=== PATIENT | male | born 1935 | race Caucasian/White ===

== ENCOUNTER 2017-06-29 14:11 | Inpatient (IN) | payer MEDICARE ==
[~2017-06-29] VITALS: Ht 175.3 cm; Wt 66.7 kg
[2017-06-29] MEDS: fentaNYL 100MCG/HR 100 MCG/HR PAT TD SCH (07:45)
[~2017-06-29 14:11] MED LIST: ALPR1TAB PO; DIAZ-104; ESOM40CA39; FENT100D11; HYDR5CAP; LEV500T PO; MEGE40SU PO; METR500T PO; Metronidazole PO; ONDA4TAB5; PRED5PAK8; PREG50CA PO; SUCR1SUS5; TAM04C
[2017-06-29] MEDS ORDERED: SODIUM CHLORIDE 0.9% 1,000 ML IV ONE (14:33)
[2017-06-29] MEDS ORDERED: LEVOFLOXACIN 500MG 100 ML IV ONE (14:45)
[2017-06-29 15:15] LABS: Basophils # (auto) 0.2 uL; Basophils % (auto) 1.1 % (0.0-2.0); Eosinophils # (auto) 0.2 uL; Eosinophils % (auto) 1.4 % (0.0-7.0); Hematocrit 41.5 % (41.0-53.0); Hemoglobin 14.1 g/dL (13.5-17.5); Lymphocytes # (auto) 1.6 uL; Lymphocytes % (auto) 9.3 % (10.0-50.0); Mean Corpuscular Hemoglobin 32.4 pg (28.0-32.0); Mean Corpuscular Volume 95.3 fL (80.0-100.0); Mean Platelet Volume 8.8 fL (6.9-10.8); Monocytes # (auto) 1.1 uL; Monocytes % (auto) 6.4 % (0.0-12.0); Neutrophils # (auto) 13.7 uL; Neutrophils % (auto) 81.8 % (37.0-80.0); Nucleated Red Blood Cells % 0.1 %; Platelet Count (auto) 154 10^3/uL (140-450); Red Cell Distribution Width 14.4 % (11.8-14.3); White Blood Cell 16.8 10^3/uL (4.4-10.8)
[2017-06-29 15:29] LABS: INR 0.98 (0.9-1.15); Partial Thromboplastin Time 25.3 sec (22.64-33.71); Prothrombin Time 10.7 sec (9.37-12.3)
[2017-06-29 15:44] LABS: Albumin 3.3 g/dL (3.4-5.0); BUN/Creatinine Ratio 16.7; Bilirubin, Total 0.9 mg/dL (0.2-1.0); Calcium 8.8 mg/dL (8.5-10.1); Total Protein 6.8 g/dL (6.4-8.2)
[2017-06-29] MEDS ORDERED: LACTULOSE 20Gm/30ML SOLN PO PRN (16:15)
[2017-06-29] MEDS ORDERED: PIPERACILLIN-TAZOB 3.375GM 100 ML IV ONE (16:15)
[2017-06-29] MEDS ORDERED: NITROGLYCERIN 0.4 MG SL TAB SL PRN (16:15)
[2017-06-29] MEDS ORDERED: MORPHINE SULF INJ 2 MG/ML SYRINGE 1ML IV PRN (16:15)
[2017-06-29] MEDS ORDERED: DIAZEPAM 5 MG TAB PO PRN (16:15)
[2017-06-29] MEDS ORDERED: ALBUTEROL SULF 2.5 MG/0.5ML(0.5%) NEB SOLN NEB PRN (16:15)
[2017-06-29] MEDS: PIPERACILLIN-TAZOB 3.375GM 100 ML IV SCH ×2 (16:23→22:23)
[2017-06-29] MEDS ORDERED: ASPirin 81 mg TAB PO ONE (16:30)
[2017-06-29] MEDS ORDERED: CLINDAMYCIN 600MG IV 50 ML IV ONE (16:30)
[2017-06-29] MEDS ORDERED: MEGESTROL ACET 400MG/10ML ORAL SUSP PO ONE (16:30)
[2017-06-29] MEDS ORDERED: AZITHROMYCIN 500MG/D5W 250ML 250 ML IV ONE (16:30)
[2017-06-29] MEDS ORDERED: NITROGLYCERIN 0.2MG/HR TOPICAL PATCH TD ONE (16:30)
[2017-06-29] MEDS ORDERED: PANTOPRAZOLE 40 MG TAB PO ONE (16:30)
[2017-06-29] MEDS: SUCRALFATE 1 GM/10 ML ORAL SUSP PO SCH ×2 (18:00→22:00)
[2017-06-29] MEDS: IPRATROPIUM BROM 0.5 MG/2.5ML INH SOL NEB SCH (18:38)
[2017-06-29] MEDS: ALBUTEROL SULF 2.5 MG/0.5ML(0.5%) NEB SOLN NEB SCH (18:38)
[2017-06-29] MEDS: ATORVASTATIN 20 MG TAB PO SCH (22:00)
[2017-06-29] MEDS: TAMSULOSIN HYDROCHLORIDE 0.4 MG CAP PO SCH (22:00)
[2017-06-29] MEDS: PREGABALIN 25 MG CAP PO SCH (22:00)
[2017-06-29] MEDS: CLINDAMYCIN 600MG IV 50 ML IV SCH (22:00)
[2017-06-29] MEDS ORDERED: PATIENTS OWN MEDICATION (Pregabalin (Lyrica) 1 CAP) PO SCH (22:00)
[2017-06-29] MEDS ORDERED: ALPRAZolam 0.5 MG TAB PO ONE (22:30)
[2017-06-29 22:40] LABS: Urine RBC None Seen /hpf (0 - 3)
[2017-06-29 22:58] LABS: Urine Bilirubin Negative (Negative); Urine Blood Negative /uL (Negative); Urine Color Yellow (Yellow); Urine Glucose Normal (Normal); Urine Ketone Negative (Negative); Urine Nitrite Negative (Negative); Urine Urobilinogen Normal (Negative)
[2017-06-30] MEDS: IPRATROPIUM BROM 0.5 MG/2.5ML INH SOL NEB SCH ×4 (00:06→17:58)
[2017-06-30] MEDS: ALBUTEROL SULF 2.5 MG/0.5ML(0.5%) NEB SOLN NEB SCH ×4 (00:06→17:58)
[2017-06-30 01:35] VITALS: BP 160/73
[2017-06-30] MEDS: PIPERACILLIN-TAZOB 3.375GM 100 ML IV SCH ×4 (04:23→23:30)
[2017-06-30 04:24] LABS: Basophils # (auto) 0.1 uL; Basophils % (auto) 0.5 % (0.0-2.0); Eosinophils # (auto) 0.3 uL; Eosinophils % (auto) 3.2 % (0.0-7.0); Hematocrit 38.7 % (41.0-53.0); Lymphocytes % (auto) 18.3 % (10.0-50.0); Mean Corpuscular Hemoglobin 31.9 pg (28.0-32.0); Mean Corpuscular Hgb Conc. 33.6 g/dL (32.0-36.0); Mean Corpuscular Volume 95.1 fL (80.0-100.0); Mean Platelet Volume 8.5 fL (6.9-10.8); Neutrophils # (auto) 7.5 uL; Platelet Count (auto) 133 10^3/uL (140-450); Red Cell Distribution Width 14.1 % (11.8-14.3); White Blood Cell 10.8 10^3/uL (4.4-10.8)
[2017-06-30] MEDS: MORPHINE SULF INJ 2 MG/ML SYRINGE 1ML IV PRN ×3 (04:57→22:40)
[2017-06-30] MEDS: ONDANSETRON HCL 4 MG/2 ML VIAL IV PRN ×2 (04:57→18:14)
[2017-06-30] MEDS: SUCRALFATE 1 GM/10 ML ORAL SUSP PO SCH ×4 (06:24→22:00)
[2017-06-30] MEDS: PREGABALIN 25 MG CAP PO SCH ×3 (06:26→22:00)
[2017-06-30] MEDS: CLINDAMYCIN 600MG IV 50 ML IV SCH ×3 (06:26→22:00)
[2017-06-30] MEDS: AZITHROMYCIN 500MG/D5W 250ML 250 ML IV SCH (10:16)
[2017-06-30] MEDS: MEGESTROL ACET 400MG/10ML ORAL SUSP PO SCH (10:17)
[2017-06-30] MEDS: NITROGLYCERIN 0.2MG/HR TOPICAL PATCH TD SCH (10:17)
[2017-06-30] MEDS: PANTOPRAZOLE 40 MG TAB PO SCH (10:17)
[2017-06-30] MEDS: ASPirin 81 mg TAB PO SCH (10:17)
[2017-06-30] MEDS: ALPRAZolam 0.5 MG TAB PO SCH ×2 (10:17→22:00)
[2017-06-30] MEDS: BOOST PLUS 8 ounce PO SCH (18:10)
[2017-06-30] MEDS ORDERED: HYDROcodone-ACET 10/325MG TAB PO ONE (20:45)
[2017-06-30] MEDS: TAMSULOSIN HYDROCHLORIDE 0.4 MG CAP PO SCH (22:00)
[2017-06-30] MEDS: ATORVASTATIN 20 MG TAB PO SCH (22:00)
[2017-07-01] MEDS: ALBUTEROL SULF 2.5 MG/0.5ML(0.5%) NEB SOLN NEB SCH ×4 (00:11→19:28)
[2017-07-01] MEDS: IPRATROPIUM BROM 0.5 MG/2.5ML INH SOL NEB SCH ×4 (00:11→19:28)
[2017-07-01] MEDS: PIPERACILLIN-TAZOB 3.375GM 100 ML IV SCH ×4 (04:23→18:24)
[2017-07-01 04:38] LABS: Basophils # (auto) 0.1 uL; Basophils % (auto) 0.8 % (0.0-2.0); Eosinophils # (auto) 0.4 uL; Eosinophils % (auto) 5.2 % (0.0-7.0); Hematocrit 37.1 % (41.0-53.0); Hemoglobin 12.7 g/dL (13.5-17.5); Lymphocytes # (auto) 1.5 uL; Lymphocytes % (auto) 19.2 % (10.0-50.0); Mean Corpuscular Hemoglobin 32.1 pg (28.0-32.0); Mean Corpuscular Hgb Conc. 34.3 g/dL (32.0-36.0); Mean Corpuscular Volume 93.8 fL (80.0-100.0); Mean Platelet Volume 8.6 fL (6.9-10.8); Monocytes % (auto) 13.3 % (0.0-12.0); Neutrophils # (auto) 4.7 uL; Neutrophils % (auto) 61.5 % (37.0-80.0); Nucleated Red Blood Cells % 0.1 %; Platelet Count (auto) 145 10^3/uL (140-450); Red Cell Distribution Width 13.8 % (11.8-14.3); White Blood Cell 7.7 10^3/uL (4.4-10.8)
[2017-07-01 04:46] LABS: Potassium 3.8 mmol/L (3.5-5.1)
[2017-07-01] MEDS: MORPHINE SULF INJ 2 MG/ML SYRINGE 1ML IV PRN ×5 (04:49→22:03)
[2017-07-01 04:55] LABS: Albumin 2.7 g/dL (3.4-5.0); BUN/Creatinine Ratio 14.7; Calcium 8.2 mg/dL (8.5-10.1)
[2017-07-01 05:00] LABS: Bilirubin, Total 0.3 mg/dL (0.2-1.0); Total Protein 5.6 g/dL (6.4-8.2)
[2017-07-01] MEDS: PREGABALIN 25 MG CAP PO SCH ×3 (06:20→22:01)
[2017-07-01] MEDS: SUCRALFATE 1 GM/10 ML ORAL SUSP PO SCH ×4 (06:20→22:01)
[2017-07-01] MEDS: CLINDAMYCIN 600MG IV 50 ML IV SCH (06:30)
[2017-07-01] MEDS: ONDANSETRON HCL 4 MG/2 ML VIAL IV PRN (06:41)
[2017-07-01] MEDS: BOOST PLUS 8 ounce PO SCH ×3 (08:00→18:00)
[2017-07-01] MEDS: NITROGLYCERIN 0.2MG/HR TOPICAL PATCH TD SCH (10:00)
[2017-07-01 10:50] VITALS: BP 99/67
[2017-07-01] MEDS: ASPirin 81 mg TAB PO SCH (11:14)
[2017-07-01] MEDS: ALPRAZolam 0.5 MG TAB PO SCH ×2 (11:15→22:03)
[2017-07-01] MEDS: PANTOPRAZOLE 40 MG TAB PO SCH (11:15)
[2017-07-01] MEDS: MEGESTROL ACET 400MG/10ML ORAL SUSP PO SCH (11:17)
[2017-07-01] MEDS ORDERED: SUC1LQ PO (11:35)
[2017-07-01] MEDS ORDERED: FENT100D2 TD (11:35)
[2017-07-01] MEDS ORDERED: ESOM20CA PO (11:35)
[2017-07-01] MEDS ORDERED: ONDA4TAB5 PO (11:35)
[2017-07-01] MEDS ORDERED: TAM04C PO (11:35)
[2017-07-01] MEDS ORDERED: PRE5T PO (11:35)
[2017-07-01] MEDS ORDERED: HYDR-4663 PO (11:35)
[2017-07-01] MEDS ORDERED: PREG50CA PO (11:35)
[2017-07-01] MEDS: AZITHROMYCIN 500MG/D5W 250ML 250 ML IV SCH (11:36)
[2017-07-01 13:00] VITALS: BP 138/76
[2017-07-01 17:00] VITALS: BP 108/71
[2017-07-01 20:00] VITALS: BP 137/79
[2017-07-01 21:30] VITALS: BP 127/85
[2017-07-01] MEDS: ATORVASTATIN 20 MG TAB PO SCH (22:01)
[2017-07-01] MEDS: TAMSULOSIN HYDROCHLORIDE 0.4 MG CAP PO SCH (22:03)
[2017-07-02] VITALS (8 sets, daily range): BP systolic 111–146; BP diastolic 70–85
[2017-07-02] MEDS: IPRATROPIUM BROM 0.5 MG/2.5ML INH SOL NEB SCH ×4 (00:15→19:07)
[2017-07-02] MEDS: ALBUTEROL SULF 2.5 MG/0.5ML(0.5%) NEB SOLN NEB SCH ×4 (00:15→19:07)
[2017-07-02] MEDS: PIPERACILLIN-TAZOB 3.375GM 100 ML IV SCH ×5 (00:58→23:54)
[2017-07-02] MEDS: MORPHINE SULF INJ 2 MG/ML SYRINGE 1ML IV PRN ×3 (02:21→23:54)
[2017-07-02] MEDS: PREGABALIN 25 MG CAP PO SCH ×3 (06:03→21:34)
[2017-07-02] MEDS: SUCRALFATE 1 GM/10 ML ORAL SUSP PO SCH ×4 (06:03→21:34)
[2017-07-02] MEDS: BOOST PLUS 8 ounce PO SCH ×3 (08:00→18:11)
[2017-07-02] MEDS: fentaNYL 100MCG/HR 100 MCG/HR PAT TD SCH (08:00)
[2017-07-02] MEDS: HYDROmorphone HCL 2 MG/ML VL IV PRN ×3 (09:29→17:56)
[2017-07-02] MEDS: ALPRAZolam 0.5 MG TAB PO SCH ×2 (09:32→21:34)
[2017-07-02] MEDS: MEGESTROL ACET 400MG/10ML ORAL SUSP PO SCH (09:32)
[2017-07-02] MEDS: ASPirin 81 mg TAB PO SCH (09:32)
[2017-07-02] MEDS: NITROGLYCERIN 0.2MG/HR TOPICAL PATCH TD SCH (09:33)
[2017-07-02] MEDS: AZITHROMYCIN 500MG/D5W 250ML 250 ML IV SCH (09:34)
[2017-07-02] MEDS: PANTOPRAZOLE 40 MG TAB PO SCH (09:36)
[2017-07-02] MEDS: TAMSULOSIN HYDROCHLORIDE 0.4 MG CAP PO SCH (21:34)
[2017-07-02] MEDS: ATORVASTATIN 20 MG TAB PO SCH (21:34)
[2017-07-03] MEDS: HYDROmorphone HCL 2 MG/ML VL IV PRN ×4 (04:18→20:11)
[2017-07-03 05:00] VITALS: BP 129/60
[2017-07-03] MEDS: PIPERACILLIN-TAZOB 3.375GM 100 ML IV SCH ×3 (06:07→18:48)
[2017-07-03] MEDS: PREGABALIN 25 MG CAP PO SCH ×4 (06:08→23:58)
[2017-07-03] MEDS: SUCRALFATE 1 GM/10 ML ORAL SUSP PO SCH ×5 (06:08→23:57)
[2017-07-03] MEDS: IPRATROPIUM BROM 0.5 MG/2.5ML INH SOL NEB SCH ×4 (06:47→18:19)
[2017-07-03] MEDS: ALBUTEROL SULF 2.5 MG/0.5ML(0.5%) NEB SOLN NEB SCH ×4 (06:48→18:19)
[2017-07-03 08:00] VITALS: BP 118/74
[2017-07-03] MEDS: MEGESTROL ACET 400MG/10ML ORAL SUSP PO SCH (09:44)
[2017-07-03] MEDS: PANTOPRAZOLE 40 MG TAB PO SCH (09:45)
[2017-07-03] MEDS: ASPirin 81 mg TAB PO SCH (09:45)
[2017-07-03] MEDS: ALPRAZolam 0.5 MG TAB PO SCH ×3 (09:45→23:58)
[2017-07-03] MEDS: BOOST PLUS 8 ounce PO SCH ×3 (09:46→18:48)
[2017-07-03] MEDS: NITROGLYCERIN 0.2MG/HR TOPICAL PATCH TD SCH (09:46)
[2017-07-03] MEDS: AZITHROMYCIN 500MG/D5W 250ML 250 ML IV SCH (09:46)
[2017-07-03 10:24] VITALS: BP 118/74
[2017-07-03 13:00] VITALS: BP 101/85
[2017-07-03 17:29] VITALS: BP 100/67
[2017-07-03 20:00] VITALS: BP 101/67
[2017-07-03] MEDS: ATORVASTATIN 20 MG TAB PO SCH ×2 (22:00→23:58)
[2017-07-03] MEDS: TAMSULOSIN HYDROCHLORIDE 0.4 MG CAP PO SCH ×2 (22:00→23:58)
[2017-07-04] MEDS: PIPERACILLIN-TAZOB 3.375GM 100 ML IV SCH ×3 (00:28→12:35)
[2017-07-04] MEDS: HYDROmorphone HCL 2 MG/ML VL IV PRN ×5 (00:29→20:21)
[2017-07-04] MEDS: ALBUTEROL SULF 2.5 MG/0.5ML(0.5%) NEB SOLN NEB SCH ×4 (00:34→19:35)
[2017-07-04] MEDS: IPRATROPIUM BROM 0.5 MG/2.5ML INH SOL NEB SCH ×4 (00:34→19:35)
[2017-07-04 03:00] VITALS: BP 101/67
[2017-07-04] MEDS: SUCRALFATE 1 GM/10 ML ORAL SUSP PO SCH ×4 (06:05→22:13)
[2017-07-04] MEDS: PREGABALIN 25 MG CAP PO SCH ×3 (06:05→22:13)
[2017-07-04 07:55] VITALS: BP 100/65
[2017-07-04 08:00] VITALS: BP 100/65
[2017-07-04] MEDS: MEGESTROL ACET 400MG/10ML ORAL SUSP PO SCH (10:11)
[2017-07-04] MEDS: NITROGLYCERIN 0.2MG/HR TOPICAL PATCH TD SCH (10:11)
[2017-07-04] MEDS: AZITHROMYCIN 500MG/D5W 250ML 250 ML IV SCH (10:12)
[2017-07-04] MEDS: ALPRAZolam 0.5 MG TAB PO SCH ×2 (10:13→22:13)
[2017-07-04] MEDS: PANTOPRAZOLE 40 MG TAB PO SCH (10:14)
[2017-07-04] MEDS: ASPirin 81 mg TAB PO SCH (10:14)
[2017-07-04] MEDS: BOOST PLUS 8 ounce PO SCH ×3 (11:57→18:06)
[2017-07-04] MEDS: fentaNYL 100MCG/HR 100 MCG/HR PAT TD SCH (12:00)
[2017-07-04 13:27] VITALS: BP 122/84
[2017-07-04 14:40] LABS: Allen Test Yes; Blood 02Sat 93.7 % (96-100); Blood COHb 0.4 % (0.5-1.5); Blood MetHb 0.1 % (0.0-1.5); HCO3 21.8 mmol/L (22-26.0); HHb 6.3 % (0.0-5.0); MODE NASAL CANNULA; O2Hb 93.2 % (94.0-97.0); PCO2 31.3 mmHg (35.0-45.0); PCO2(T) 31.3 mmHg (35.0-45.0); PO2 71.3 mmHg (80.0-100.0); PO2(T) 71.3 mmHg (80.0-100.0); Room 0288T; Sample Type Arterial; pH 7.461 (7.350-7.450)
[2017-07-04 15:26] LABS: Basophils # (auto) 0.1 uL; Eosinophils # (auto) 0.7 uL; Eosinophils % (auto) 6.4 % (0.0-7.0); Hematocrit 39.9 % (41.0-53.0); Hemoglobin 13.6 g/dL (13.5-17.5); Lymphocytes # (auto) 1.8 uL; Lymphocytes % (auto) 17.6 % (10.0-50.0); Mean Corpuscular Hemoglobin 31.9 pg (28.0-32.0); Mean Corpuscular Volume 93.9 fL (80.0-100.0); Mean Platelet Volume 9.2 fL (6.9-10.8); Monocytes # (auto) 1.2 uL; Monocytes % (auto) 11.8 % (0.0-12.0); Neutrophils # (auto) 6.5 uL; Neutrophils % (auto) 63.2 % (37.0-80.0); Nucleated Red Blood Cells % 0.1 %; Platelet Count (auto) 172 10^3/uL (140-450); Red Cell Distribution Width 14.1 % (11.8-14.3); White Blood Cell 10.3 10^3/uL (4.4-10.8)
[2017-07-04 15:32] LABS: Albumin 2.8 g/dL (3.4-5.0); BUN/Creatinine Ratio 15.6; Calcium 8.6 mg/dL (8.5-10.1); Potassium 3.5 mmol/L (3.5-5.1)
[2017-07-04 15:33] LABS: Bilirubin, Total 0.4 mg/dL (0.2-1.0); Total Protein 6.1 g/dL (6.4-8.2)
[2017-07-04 16:51] VITALS: BP 115/62
[2017-07-04] MEDS: DOXYCYCLINE HYC IV SCH (18:06)
[2017-07-04] MEDS: D5W IV SCH (18:06)
[2017-07-04] MEDS: Boost Breeze 8 Ounces PO SCH (18:06)
[2017-07-04 21:54] VITALS: BP 116/70
[2017-07-04] MEDS: TAMSULOSIN HYDROCHLORIDE 0.4 MG CAP PO SCH (22:13)
[2017-07-04] MEDS: ATORVASTATIN 20 MG TAB PO SCH (22:13)
[2017-07-05] MEDS: ALBUTEROL SULF 2.5 MG/0.5ML(0.5%) NEB SOLN NEB SCH ×4 (00:33→18:00)
[2017-07-05] MEDS: IPRATROPIUM BROM 0.5 MG/2.5ML INH SOL NEB SCH ×4 (00:33→18:00)
[2017-07-05] MEDS: HYDROmorphone HCL 2 MG/ML VL IV PRN ×4 (01:36→21:18)
[2017-07-05 04:57] VITALS: BP 119/85
[2017-07-05] MEDS: SUCRALFATE 1 GM/10 ML ORAL SUSP PO SCH ×4 (05:33→22:48)
[2017-07-05] MEDS: D5W IV SCH ×2 (05:33→17:10)
[2017-07-05] MEDS: DOXYCYCLINE HYC IV SCH ×2 (05:33→17:10)
[2017-07-05] MEDS: PREGABALIN 25 MG CAP PO SCH ×3 (05:33→22:47)
[2017-07-05 07:58] VITALS: BP 116/79
[2017-07-05] MEDS: NITROGLYCERIN 0.2MG/HR TOPICAL PATCH TD SCH (09:58)
[2017-07-05] MEDS: MEGESTROL ACET 400MG/10ML ORAL SUSP PO SCH (09:58)
[2017-07-05] MEDS: PANTOPRAZOLE 40 MG TAB PO SCH (09:59)
[2017-07-05] MEDS: ALPRAZolam 0.5 MG TAB PO SCH ×2 (09:59→22:47)
[2017-07-05] MEDS: ASPirin 81 mg TAB PO SCH (09:59)
[2017-07-05] MEDS: Boost Breeze 8 Ounces PO SCH ×3 (10:00→17:10)
[2017-07-05] MEDS: BOOST PLUS 8 ounce PO SCH ×3 (10:00→17:10)
[2017-07-05 10:55] LABS: Basophils # (auto) 0.1 uL; Basophils % (auto) 0.8 % (0.0-2.0); Eosinophils # (auto) 0.7 uL; Eosinophils % (auto) 5.3 % (0.0-7.0); Hematocrit 40.5 % (41.0-53.0); Hemoglobin 13.8 g/dL (13.5-17.5); Lymphocytes # (auto) 2.1 uL; Lymphocytes % (auto) 16.4 % (10.0-50.0); Mean Corpuscular Hemoglobin 32.1 pg (28.0-32.0); Mean Corpuscular Hgb Conc. 34.1 g/dL (32.0-36.0); Mean Platelet Volume 9.1 fL (6.9-10.8); Monocytes # (auto) 1.2 uL; Monocytes % (auto) 9.7 % (0.0-12.0); Neutrophils # (auto) 8.8 uL; Neutrophils % (auto) 67.8 % (37.0-80.0); Nucleated Red Blood Cells % 0.1 %; Platelet Count (auto) 176 10^3/uL (140-450); Red Cell Distribution Width 13.6 % (11.8-14.3); White Blood Cell 12.9 10^3/uL (4.4-10.8)
[2017-07-05 11:37] LABS: Calcium 8.8 mg/dL (8.5-10.1); Potassium 3.7 mmol/L (3.5-5.1)
[2017-07-05 13:11] VITALS: BP 121/64
[2017-07-05] MEDS: fentaNYL 100MCG/HR 100 MCG/HR PAT TD SCH (16:15)
[2017-07-05 16:49] VITALS: BP 99/66
[2017-07-05 22:22] VITALS: BP 122/70
[2017-07-05] MEDS: ATORVASTATIN 20 MG TAB PO SCH (22:47)
[2017-07-05] MEDS: TAMSULOSIN HYDROCHLORIDE 0.4 MG CAP PO SCH (22:48)
[2017-07-06] MEDS: ALBUTEROL SULF 2.5 MG/0.5ML(0.5%) NEB SOLN NEB SCH ×4 (00:35→19:48)
[2017-07-06] MEDS: IPRATROPIUM BROM 0.5 MG/2.5ML INH SOL NEB SCH ×4 (00:35→19:48)
[2017-07-06] MEDS: HYDROmorphone HCL 2 MG/ML VL IV PRN ×6 (01:26→22:20)
[2017-07-06 05:21] VITALS: BP 124/76
[2017-07-06] MEDS: PREGABALIN 25 MG CAP PO SCH ×3 (05:28→22:20)
[2017-07-06] MEDS: D5W IV SCH ×2 (05:29→17:47)
[2017-07-06] MEDS: DOXYCYCLINE HYC IV SCH ×2 (05:29→17:47)
[2017-07-06] MEDS: SUCRALFATE 1 GM/10 ML ORAL SUSP PO SCH ×4 (05:29→22:20)
[2017-07-06] MEDS: Boost Breeze 8 Ounces PO SCH ×3 (08:16→17:47)
[2017-07-06] MEDS: BOOST PLUS 8 ounce PO SCH ×3 (08:17→17:47)
[2017-07-06 09:26] VITALS: BP 124/76
[2017-07-06 09:42] VITALS: BP 96/73
[2017-07-06] MEDS: NITROGLYCERIN 0.2MG/HR TOPICAL PATCH TD SCH (10:00)
[2017-07-06] MEDS: MEGESTROL ACET 400MG/10ML ORAL SUSP PO SCH (10:35)
[2017-07-06] MEDS: PANTOPRAZOLE 40 MG TAB PO SCH (10:36)
[2017-07-06] MEDS: ALPRAZolam 0.5 MG TAB PO SCH ×2 (10:36→22:20)
[2017-07-06] MEDS: ASPirin 81 mg TAB PO SCH (10:36)
[2017-07-06 11:00] VITALS: BP 100/70
[2017-07-06] MEDS: DIAZEPAM 5 MG TAB PO PRN (14:24)
[2017-07-06 17:02] VITALS: BP 98/72
[2017-07-06 22:00] VITALS: BP 126/84
[2017-07-06] MEDS: TAMSULOSIN HYDROCHLORIDE 0.4 MG CAP PO SCH (22:20)
[2017-07-06] MEDS: ATORVASTATIN 20 MG TAB PO SCH (22:41)
[2017-07-07] MEDS: ALBUTEROL SULF 2.5 MG/0.5ML(0.5%) NEB SOLN NEB SCH ×4 (00:09→19:32)
[2017-07-07] MEDS: IPRATROPIUM BROM 0.5 MG/2.5ML INH SOL NEB SCH ×4 (00:09→19:32)
[2017-07-07] MEDS: HYDROmorphone HCL 2 MG/ML VL IV PRN ×5 (02:07→21:08)
[2017-07-07] MEDS: PREGABALIN 25 MG CAP PO SCH ×3 (06:29→22:12)
[2017-07-07] MEDS: SUCRALFATE 1 GM/10 ML ORAL SUSP PO SCH ×4 (06:29→22:11)
[2017-07-07] MEDS: D5W IV SCH ×2 (06:30→17:26)
[2017-07-07] MEDS: DOXYCYCLINE HYC IV SCH ×2 (06:30→17:26)
[2017-07-07] MEDS: Boost Breeze 8 Ounces PO SCH ×3 (08:00→18:18)
[2017-07-07] MEDS: BOOST PLUS 8 ounce PO SCH ×3 (08:00→18:00)
[2017-07-07 08:58] VITALS: BP 122/77
[2017-07-07] MEDS: NITROGLYCERIN 0.2MG/HR TOPICAL PATCH TD SCH (10:00)
[2017-07-07] MEDS: PANTOPRAZOLE 40 MG TAB PO SCH (10:00)
[2017-07-07] MEDS: ALPRAZolam 0.5 MG TAB PO SCH ×2 (10:00→22:13)
[2017-07-07] MEDS: MEGESTROL ACET 400MG/10ML ORAL SUSP PO SCH ×2 (10:00→13:01)
[2017-07-07] MEDS: ASPirin 81 mg TAB PO SCH (10:00)
[2017-07-07] MEDS: fentaNYL 100MCG/HR 100 MCG/HR PAT TD SCH (11:20)
[2017-07-07 12:42] VITALS: BP 115/76
[2017-07-07] MEDS ORDERED: TESTOSTERONE CYPIONATE 200 MG/ML 1ML VIAL IM ONE (13:00)
[2017-07-07 13:52] LABS: Basophils # (auto) 0.1 uL; Basophils % (auto) 1.1 % (0.0-2.0); Eosinophils # (auto) 0.5 uL; Eosinophils % (auto) 4.9 % (0.0-7.0); Hematocrit 39.2 % (41.0-53.0); Hemoglobin 13.1 g/dL (13.5-17.5); Lymphocytes # (auto) 2.2 uL; Lymphocytes % (auto) 23.6 % (10.0-50.0); Mean Corpuscular Hemoglobin 31.6 pg (28.0-32.0); Mean Corpuscular Hgb Conc. 33.4 g/dL (32.0-36.0); Mean Corpuscular Volume 94.6 fL (80.0-100.0); Mean Platelet Volume 9.4 fL (6.9-10.8); Neutrophils # (auto) 5.7 uL; Neutrophils % (auto) 59.4 % (37.0-80.0); Platelet Count (auto) 162 10^3/uL (140-450); Red Cell Distribution Width 13.7 % (11.8-14.3); White Blood Cell 9.5 10^3/uL (4.4-10.8)
[2017-07-07 14:18] LABS: Albumin 2.8 g/dL (3.4-5.0); BUN/Creatinine Ratio 14.2; Calcium 8.6 mg/dL (8.5-10.1); Potassium 3.7 mmol/L (3.5-5.1)
[2017-07-07 14:34] LABS: Bilirubin, Total 0.5 mg/dL (0.2-1.0); Total Protein 6.1 g/dL (6.4-8.2)
[2017-07-07 14:40] LABS: Temperature: 21.9 C (20.0-25.0)
[2017-07-07 16:18] VITALS: BP 130/80
[2017-07-07] MEDS: DIAZEPAM 5 MG TAB PO PRN (17:25)
[2017-07-07 22:00] VITALS: BP 127/75
[2017-07-07] MEDS: TAMSULOSIN HYDROCHLORIDE 0.4 MG CAP PO SCH (22:11)
[2017-07-07] MEDS: ATORVASTATIN 20 MG TAB PO SCH (22:12)
[2017-07-08] MEDS: ALBUTEROL SULF 2.5 MG/0.5ML(0.5%) NEB SOLN NEB SCH ×4 (01:07→19:46)
[2017-07-08] MEDS: IPRATROPIUM BROM 0.5 MG/2.5ML INH SOL NEB SCH ×4 (01:08→19:46)
[2017-07-08] MEDS: HYDROmorphone HCL 2 MG/ML VL IV PRN ×5 (01:13→20:05)
[2017-07-08 05:00] VITALS: BP 114/74
[2017-07-08] MEDS: D5W IV SCH ×2 (05:27→17:00)
[2017-07-08] MEDS: DOXYCYCLINE HYC IV SCH ×2 (05:27→17:00)
[2017-07-08] MEDS: PREGABALIN 25 MG CAP PO SCH ×3 (05:28→22:05)
[2017-07-08] MEDS: SUCRALFATE 1 GM/10 ML ORAL SUSP PO SCH ×4 (05:28→22:04)
[2017-07-08] MEDS: DIAZEPAM 5 MG TAB PO PRN (06:55)
[2017-07-08] MEDS: BOOST PLUS 8 ounce PO SCH ×3 (08:00→18:00)
[2017-07-08] MEDS: Boost Breeze 8 Ounces PO SCH ×3 (08:00→18:00)
[2017-07-08 09:00] VITALS: BP 121/67
[2017-07-08] MEDS: NITROGLYCERIN 0.2MG/HR TOPICAL PATCH TD SCH (10:00)
[2017-07-08] MEDS: ALPRAZolam 0.5 MG TAB PO SCH ×2 (10:00→22:05)
[2017-07-08] MEDS: ASPirin 81 mg TAB PO SCH (10:00)
[2017-07-08] MEDS: PANTOPRAZOLE 40 MG TAB PO SCH (10:00)
[2017-07-08] MEDS: MEGESTROL ACET 400MG/10ML ORAL SUSP PO SCH ×2 (10:00)
[2017-07-08 13:00] VITALS: BP 126/71
[2017-07-08 17:00] VITALS: BP 102/76
[2017-07-08] MEDS: fentaNYL 100MCG/HR 100 MCG/HR PAT TD SCH (19:26)
[2017-07-08 22:00] VITALS: BP 100/73
[2017-07-08] MEDS: TAMSULOSIN HYDROCHLORIDE 0.4 MG CAP PO SCH (22:05)
[2017-07-08] MEDS: ATORVASTATIN 20 MG TAB PO SCH (22:05)
[2017-07-09] VITALS (7 sets, daily range): BP systolic 93–134; BP diastolic 58–73
[2017-07-09] MEDS: HYDROmorphone HCL 2 MG/ML VL IV PRN ×4 (00:39→14:04)
[2017-07-09] MEDS: IPRATROPIUM BROM 0.5 MG/2.5ML INH SOL NEB SCH ×3 (00:49→11:00)
[2017-07-09] MEDS: ALBUTEROL SULF 2.5 MG/0.5ML(0.5%) NEB SOLN NEB SCH ×3 (00:49→11:00)
[2017-07-09] MEDS: DOXYCYCLINE HYC IV SCH ×2 (05:18→17:06)
[2017-07-09] MEDS: D5W IV SCH ×2 (05:18→17:06)
[2017-07-09] MEDS: PREGABALIN 25 MG CAP PO SCH ×2 (06:08→14:15)
[2017-07-09] MEDS: SUCRALFATE 1 GM/10 ML ORAL SUSP PO SCH ×3 (06:08→17:26)
[2017-07-09] MEDS: Boost Breeze 8 Ounces PO SCH ×3 (08:00→18:04)
[2017-07-09] MEDS: BOOST PLUS 8 ounce PO SCH ×3 (08:00→18:04)
[2017-07-09] MEDS: ALPRAZolam 0.5 MG TAB PO SCH (09:34)
[2017-07-09] MEDS: MEGESTROL ACET 400MG/10ML ORAL SUSP PO SCH ×2 (09:34)
[2017-07-09] MEDS: ASPirin 81 mg TAB PO SCH (09:34)
[2017-07-09] MEDS: PANTOPRAZOLE 40 MG TAB PO SCH (09:34)
[2017-07-09] MEDS: NITROGLYCERIN 0.2MG/HR TOPICAL PATCH TD SCH (09:35)
[2017-07-09] MEDS: MORPHINE SULF INJ 2 MG/ML SYRINGE 1ML IV PRN (17:06)
== END 2017-07-09 18:57 | disposition home health service (06) | DRG 871 ==
LOC: ER 14:11 → EDBD 14:11 → OVERFLOW 14:12 → TELE-E-ADS 07-01 08:02 → TELE-WESTW 07-01 10:27
PROVIDERS: ADMIT Internal Medicine; ATTEND Internal Medicine Cardiovascular Disease
DX: A41.9 Sepsis, unspecified organism (principal); J18.9 Pneumonia, unspecified organism; I21.4 Non-ST elevation (NSTEMI) myocardial infarction; G93.41 Metabolic encephalopathy; E44.0 Moderate protein-calorie malnutrition; I48.92 Unspecified atrial flutter; J44.0 Chronic obstructive pulmonary disease with (acute) lower respiratory infection; D68.69 Other thrombophilia; I48.0 Paroxysmal atrial fibrillation; I25.10 Atherosclerotic heart disease of native coronary artery without angina pectoris; K21.9 Gastro-esophageal reflux disease without esophagitis; I10 Essential (primary) hypertension; I25.5 Ischemic cardiomyopathy; K27.9 Peptic ulcer, site unspecified, unspecified as acute or chronic, without hemorrhage or perforation; F32.9 Major depressive disorder, single episode, unspecified; F41.9 Anxiety disorder, unspecified; M19.90 Unspecified osteoarthritis, unspecified site; B95.62 Methicillin resistant Staphylococcus aureus infection as the cause of diseases classified elsewhere; K59.00 Constipation, unspecified; Z90.5 Acquired absence of kidney; Z71.3 Dietary counseling and surveillance; Z68.21 Body mass index [BMI] 21.0-21.9, adult; Z95.1 Presence of aortocoronary bypass graft; Z90.49 Acquired absence of other specified parts of digestive tract; I25.2 Old myocardial infarction; Z88.2 Allergy status to sulfonamides; Z88.1 Allergy status to other antibiotic agents; Z88.8 Allergy status to other drugs, medicaments and biological substances; Z79.899 Other long term (current) drug therapy; Z87.891 Personal history of nicotine dependence; Z87.442 Personal history of urinary calculi; Z85.528 Personal history of other malignant neoplasm of kidney; Z82.49 Family history of ischemic heart disease and other diseases of the circulatory system; Z80.8 Family history of malignant neoplasm of other organs or systems
CPT/HCPCS: 36415; 36600; 71010; 71020; 80048; 80053; 81001; 82550; 82805; 83605; 83880; 84484; 85025; 85610; 85652; 85730; 86141; 87040; 87070; 87077; 87086; 87186; 87205; 93005; 94640; 94761; 96365; 96367; 96375; G0378; J1071; J1956; J2405; J2543; J3490

== ENCOUNTER 2018-05-14 00:57 | Emergency (ER) | payer MEDICARE ==
[~2018-05-14] VITALS: Ht 180.3 cm; Wt 81.6 kg
[~2018-05-14 00:57] MED LIST changes: -DIAZ-104; +ESOM20CA PO; -ESOM40CA39; -FENT100D11; +FENT100D2 TD; +HYDR-4683 PO; -HYDR5CAP; -ONDA4TAB5; +ONDA4TAB5 PO; +PRE5T PO; -PRED5PAK8; +SUCR1SUS10 PO; -SUCR1SUS5; -TAM04C; +TAM04C PO
[2018-05-14] MEDS ORDERED: ONDANSETRON HCL 4 MG/2 ML VIAL IV ONE ×2 (02:45→05:30)
[2018-05-14] MEDS ORDERED: PANTOPRAZOLE 40 MG/10 ML VIAL IV STA (02:45)
[2018-05-14] MEDS ORDERED: KETOROLAC TROMETH 30 MG/ML 1ML VIAL IV ONE (02:45)
[2018-05-14] MEDS ORDERED: IOHEXOL 300 MG/ML 100ML BOTTLE IJ ONE (03:05)
[2018-05-14 03:16] LABS: Basophils # (auto) 0 uL; Basophils % (auto) 0.6 % (0.0-2.0); Eosinophils # (auto) 0.3 uL; Eosinophils % (auto) 4.7 % (0.0-7.0); Hemoglobin 14.7 g/dL (13.5-17.5); Lymphocytes # (auto) 2.2 uL; Lymphocytes % (auto) 31.5 % (10.0-50.0); Mean Corpuscular Hemoglobin 31.1 pg (28.0-32.0); Mean Corpuscular Hgb Conc. 33.3 g/dL (32.0-36.0); Mean Corpuscular Volume 93.4 fL (80.0-100.0); Monocytes # (auto) 0.8 uL; Monocytes % (auto) 11.7 % (0.0-12.0); Neutrophils # (auto) 3.6 uL; Neutrophils % (auto) 51.5 % (37.0-80.0); Nucleated Red Blood Cells % 0.1 %; Platelet Count (auto) 179 10^3/uL (140-450); Red Blood Cells 4.72 10^6/uL (4.5-5.90); Red Cell Distribution Width 14.6 % (11.8-14.3)
[2018-05-14 03:17] LABS: Albumin 3.4 g/dL (3.4-5.0); Amylase 43 U/L (25-115); Anion Gap 11 (5-15); BUN/Creatinine Ratio 10.8; Blood Urea Nitrogen 13 mg/dL (7-18); Calcium 8.5 mg/dL (8.5-10.1); Carbon Dioxide 22 mmol/L (21-32); Chloride 107 mmol/L (98-107); GFR African American 75 mL/min; GFR Non-African American 62 mL/min; Glucose 85 mg/dL (74-106); Lipase 86 U/L (73-393); Magnesium 2.1 mg/dL (1.6-2.6); Potassium 3.8 mmol/L (3.5-5.1); Sodium 140 mmol/L (136-145)
[2018-05-14 03:22] LABS: Alanine Aminotransferase 20 U/L (16-61); Alkaline Phosphatase 61 U/L (45-117); Aspartate Aminotransferase 22 U/L (15-37); Bilirubin, Total 1.2 mg/dL (0.2-1.0); Total Protein 6.7 g/dL (6.4-8.2)
[2018-05-14 03:30] LABS: INR 1.06 (0.9-1.15); Partial Thromboplastin Time 27.2 sec (23.78-33.04); Prothrombin Time 11.3 sec (9.27-12.13)
[2018-05-14 04:20] VITALS: BP 134/84
== END 2018-05-14 06:19 | disposition home or self-care (01) ==
LOC: EDBD 00:57 → ER 01:08
DX: N20.0 Calculus of kidney (principal); R11.2 Nausea with vomiting, unspecified; I48.91 Unspecified atrial fibrillation; I25.810 Atherosclerosis of coronary artery bypass graft(s) without angina pectoris; K21.9 Gastro-esophageal reflux disease without esophagitis; I10 Essential (primary) hypertension; J44.9 Chronic obstructive pulmonary disease, unspecified; M19.90 Unspecified osteoarthritis, unspecified site; Z90.49 Acquired absence of other specified parts of digestive tract; Z87.891 Personal history of nicotine dependence; Z88.1 Allergy status to other antibiotic agents; Z88.2 Allergy status to sulfonamides; Z88.6 Allergy status to analgesic agent; Z88.8 Allergy status to other drugs, medicaments and biological substances
CPT/HCPCS: 36415; 74176; 80053; 82150; 83605; 83690; 83735; 84484; 85025; 85610; 85730; 93005; 94761; 96374; 96375; 96376; 99285; C9113; J1885; J2405

== ENCOUNTER 2018-05-15 16:24 | Inpatient (IN) | payer MEDICARE ==
[~2018-05-15] VITALS: Ht 172.7 cm; Wt 64.3 kg
[2018-05-15 17:29] LABS: Basophils # (auto) 0 uL; Basophils % (auto) 0.7 % (0.0-2.0); Eosinophils # (auto) 0.1 uL; Eosinophils % (auto) 2.2 % (0.0-7.0); Hematocrit 45.6 % (41.0-53.0); Hemoglobin 15.5 g/dL (13.5-17.5); Lymphocytes # (auto) 1.4 uL; Lymphocytes % (auto) 21.4 % (10.0-50.0); Mean Corpuscular Hemoglobin 31.6 pg (28.0-32.0); Mean Corpuscular Hgb Conc. 33.9 g/dL (32.0-36.0); Mean Corpuscular Volume 93.3 fL (80.0-100.0); Monocytes # (auto) 0.8 uL; Monocytes % (auto) 12.3 % (0.0-12.0); Neutrophils # (auto) 4.1 uL; Neutrophils % (auto) 63.4 % (37.0-80.0); Platelet Count (auto) 173 10^3/uL (140-450); Red Blood Cells 4.89 10^6/uL (4.5-5.90); Red Cell Distribution Width 14.1 % (11.8-14.3); White Blood Cell 6.5 10^3/uL (4.4-10.8)
[2018-05-15] MEDS ORDERED: SODIUM CHLORIDE 0.9% 1,000 ML IVB ONE (17:46)
[2018-05-15 17:58] LABS: Albumin 3.7 g/dL (3.4-5.0); BUN/Creatinine Ratio 12.2; Calcium 8.7 mg/dL (8.5-10.1); Potassium 3.9 mmol/L (3.5-5.1)
[2018-05-15] MEDS ORDERED: ONDANSETRON HCL 4 MG/2 ML VIAL IV ONE (18:00)
[2018-05-15 18:01] LABS: Bilirubin, Total 1.3 mg/dL (0.2-1.0); Total Protein 7.2 g/dL (6.4-8.2)
[2018-05-15 19:20] LABS: Magnesium 2.1 mg/dL (1.6-2.6)
[2018-05-15 19:21] LABS: INR 1.02 (0.9-1.15); Partial Thromboplastin Time 26.9 sec (23.78-33.04); Prothrombin Time 10.9 sec (9.27-12.13)
[2018-05-15] MEDS ORDERED: MORPHINE SULF INJ 2 MG/ML SYRINGE 1ML IV ONE (20:30)
[2018-05-15 22:00] VITALS: BP 161/89
[2018-05-15] MEDS ORDERED: PANTOPRAZOLE 40 MG/10 ML VIAL IV ONE (22:00)
[2018-05-15] MEDS ORDERED: HYDROcodone-ACET 5/325MG TAB PO PRN (22:00)
[2018-05-15] MEDS ORDERED: ACETAMINOPHEN 325 MG TAB PO PRN (22:00)
[2018-05-15] MEDS ORDERED: ONDANSETRON HCL 4 MG/2 ML VIAL IV PRN (22:00)
[2018-05-15] MEDS ORDERED: cloNIDine HCL 0.1 MG TAB PO PRN (23:15)
[2018-05-15] MEDS: MORPHINE SULF INJ 2 MG/ML SYRINGE 1ML IV PRN (23:21)
[2018-05-16] MEDS: SODIUM CHLORIDE 0.9% 1,000 ML IV SCH ×2 (00:28→11:14)
[2018-05-16] MEDS ORDERED: ZOLP10TA PO (01:17)
[2018-05-16] MEDS ORDERED: HYDR-4683 PO ×2 (01:18→12:32)
[2018-05-16] MEDS ORDERED: PROMETHAZINE HCL 25 MG/ML 1ML IV PRN (03:30)
[2018-05-16] MEDS: MORPHINE SULF INJ 2 MG/ML SYRINGE 1ML IV PRN ×4 (03:46→19:53)
[2018-05-16 05:14] VITALS: BP 158/83
[2018-05-16 05:33] LABS: Urine Bacteria NONE SEEN /hpf (None Seen); Urine Blood Negative /uL (Negative); Urine Specific Gravity 1.024 (1.001-1.035); Urine WBC <1 /hpf (0 - 3)
[2018-05-16 06:50] LABS: Basophils # (auto) 0 uL; Basophils % (auto) 0.4 % (0.0-2.0); Eosinophils # (auto) 0.2 uL; Eosinophils % (auto) 2.9 % (0.0-7.0); Hematocrit 44.4 % (41.0-53.0); Lymphocytes # (auto) 2.9 uL; Lymphocytes % (auto) 36.1 % (10.0-50.0); Mean Corpuscular Hemoglobin 31.7 pg (28.0-32.0); Mean Corpuscular Hgb Conc. 33.8 g/dL (32.0-36.0); Mean Corpuscular Volume 93.7 fL (80.0-100.0); Monocytes # (auto) 0.9 uL; Monocytes % (auto) 11.3 % (0.0-12.0); Neutrophils # (auto) 3.9 uL; Neutrophils % (auto) 49.3 % (37.0-80.0); Nucleated Red Blood Cells % 0.1 %; Platelet Count (auto) 175 10^3/uL (140-450); Red Blood Cells 4.74 10^6/uL (4.5-5.90); Red Cell Distribution Width 14.2 % (11.8-14.3)
[2018-05-16 07:09] LABS: Albumin 3.7 g/dL (3.4-5.0); BUN/Creatinine Ratio 12.7; Bilirubin, Total 1.6 mg/dL (0.2-1.0); Calcium 8.7 mg/dL (8.5-10.1); Potassium 3.8 mmol/L (3.5-5.1)
[2018-05-16 09:00] VITALS: BP 147/99
[2018-05-16] MEDS ORDERED: PANTOPRAZOLE 40 MG/10 ML VIAL IV SCH (10:00)
[2018-05-16] MEDS: ENOXAPARIN SOD 40 MG/0.4 ML SYRINGE SC SCH (11:03)
[2018-05-16] MEDS ORDERED: FENT75DI2 TD (12:32)
[2018-05-16] MEDS ORDERED: DIAZ-104 PO (12:32)
[2018-05-16] MEDS ORDERED: DOCU-80 PO (12:32)
[2018-05-16] MEDS ORDERED: TAM04C PO (12:32)
[2018-05-16] MEDS ORDERED: ESOM40CA39 PO (12:32)
[2018-05-16] MEDS ORDERED: SUCR1SUS5 PO (12:32)
[2018-05-16] MEDS ORDERED: ONDA4TAB5 PO (12:32)
[2018-05-16 13:00] VITALS: BP 161/81
[2018-05-16] MEDS ORDERED: fentaNYL 100MCG/HR 100 MCG/HR PAT TD SCH (15:00)
[2018-05-16 17:11] VITALS: BP 160/97
[2018-05-16] MEDS: LACTULOSE 20Gm/30ML SOLN PO SCH (17:43)
[2018-05-16] MEDS ORDERED: TAMSULOSIN HYDROCHLORIDE 0.4 MG CAP PO SCH (18:00)
[2018-05-16] MEDS: ONDANSETRON HCL 4 MG/2 ML VIAL IV PRN (18:01)
[2018-05-16 21:25] VITALS: BP 119/72
[2018-05-16] MEDS ORDERED: ATORVASTATIN 20 MG TAB PO SCH (22:00)
[2018-05-17] MEDS: SODIUM CHLORIDE 0.9% 1,000 ML IV SCH ×2 (00:43→14:00)
[2018-05-17] MEDS: MORPHINE SULF INJ 2 MG/ML SYRINGE 1ML IV PRN ×3 (01:34→13:20)
[2018-05-17] MEDS: ONDANSETRON HCL 4 MG/2 ML VIAL IV PRN ×3 (04:30→13:20)
[2018-05-17 05:14] VITALS: BP 116/64
[2018-05-17] MEDS: LACTULOSE 20Gm/30ML SOLN PO SCH ×3 (06:00→12:00)
[2018-05-17 08:22] VITALS: BP 112/76
[2018-05-17] MEDS: ENOXAPARIN SOD 40 MG/0.4 ML SYRINGE SC SCH (08:56)
[2018-05-17] MEDS ORDERED: PANTOPRAZOLE 40 MG TAB PO SCH (10:00)
[2018-05-17 12:16] VITALS: BP 113/82
[2018-05-17] MEDS ORDERED: LACT10SO3 PO (13:08)
[2018-05-17] MEDS ORDERED: ONDA-101 PO (13:08)
== END 2018-05-17 15:39 | disposition home or self-care (01) | DRG 389 ==
LOC: EDBD 16:24 → ER 16:24 → OVERFLOW 16:25 → MERGE 16:25 → WEST WING 23:00
PROVIDERS: ADMIT Nurse Practitioner; ATTEND Internal Medicine
DX: K56.41 Fecal impaction (principal); K56.7 Ileus, unspecified; E78.5 Hyperlipidemia, unspecified; G89.29 Other chronic pain; I10 Essential (primary) hypertension; N40.0 Benign prostatic hyperplasia without lower urinary tract symptoms; G62.9 Polyneuropathy, unspecified; J44.9 Chronic obstructive pulmonary disease, unspecified; I25.10 Atherosclerotic heart disease of native coronary artery without angina pectoris; I25.5 Ischemic cardiomyopathy; Z79.891 Long term (current) use of opiate analgesic; Z82.49 Family history of ischemic heart disease and other diseases of the circulatory system; Z85.528 Personal history of other malignant neoplasm of kidney; Z87.442 Personal history of urinary calculi; Z90.5 Acquired absence of kidney; Z95.1 Presence of aortocoronary bypass graft; Z88.3 Allergy status to other anti-infective agents; Z88.2 Allergy status to sulfonamides; Z88.8 Allergy status to other drugs, medicaments and biological substances
CPT/HCPCS: 36415; 71045; 74176; 80053; 81001; 82150; 83605; 83690; 83735; 84484; 85025; 85610; 85730; 93005; 94761; 96374; 96375; 96376; C9113; J1885; J2405

== ENCOUNTER 2018-08-21 14:52 | Inpatient (IN) | payer MEDICARE ==
[~2018-08-21] VITALS: Ht 172.7 cm; Wt 61.6 kg
[~2018-08-21 14:52] MED LIST changes: +DIAZ-104 PO; +DOCU-80 PO; +ESOM40CA39 PO; +FENT75DI2 TD; +LACT10SO3 PO; +ONDA-101 PO; +SUCR1SUS5 PO
[2018-08-21 15:34] LABS: Basophils # (auto) 0.1 uL; Basophils % (auto) 0.7 % (0.0-2.0); Eosinophils # (auto) 0.3 uL; Eosinophils % (auto) 3.1 % (0.0-7.0); Hematocrit 44.5 % (41.0-53.0); Lymphocytes # (auto) 1.8 uL; Lymphocytes % (auto) 22.6 % (10.0-50.0); Mean Corpuscular Hemoglobin 31.7 pg (28.0-32.0); Mean Corpuscular Hgb Conc. 33.8 g/dL (32.0-36.0); Mean Corpuscular Volume 93.8 fL (80.0-100.0); Monocytes # (auto) 0.9 uL; Monocytes % (auto) 11.1 % (0.0-12.0); Neutrophils % (auto) 62.5 % (37.0-80.0); Platelet Count (auto) 189 10^3/uL (140-450); Red Blood Cells 4.74 10^6/uL (4.5-5.90); Red Cell Distribution Width 15.2 % (11.8-14.3); White Blood Cell 8.1 10^3/uL (4.4-10.8)
[2018-08-21 15:46] LABS: Albumin 3.8 g/dL (3.4-5.0); Anion Gap 7 (5-15); Blood Urea Nitrogen 16 mg/dL (7-18); Calcium 8.7 mg/dL (8.5-10.1); Carbon Dioxide 23 mmol/L (21-32); Chloride 104 mmol/L (98-107); Glucose 86 mg/dL (74-106); Magnesium 2.3 mg/dL (1.6-2.6); Potassium 4.1 mmol/L (3.5-5.1); Sodium 134 mmol/L (136-145)
[2018-08-21 15:50] LABS: Alanine Aminotransferase 15 U/L (16-61); Alkaline Phosphatase 61 U/L (45-117); Aspartate Aminotransferase 19 U/L (15-37); BUN/Creatinine Ratio 11.9; Bilirubin, Total 1.1 mg/dL (0.2-1.0); GFR African American 66 mL/min; GFR Non-African American 54 mL/min; Total Protein 7.1 g/dL (6.4-8.2)
[2018-08-21] MEDS ORDERED: SODIUM CHLORIDE 0.9% 1,000 ML IVB ONE (16:09)
[2018-08-21] MEDS ORDERED: ACETAMINOPHEN 325 MG TAB PO ONE (16:15)
[2018-08-21 17:02] LABS: INR 1.02 (0.9-1.15); Partial Thromboplastin Time 26.1 sec (23.78-33.04); Prothrombin Time 10.9 sec (9.27-12.13)
[2018-08-21] MEDS ORDERED: HYDROcodone-ACET 10/325MG TAB PO ONE (17:30)
[2018-08-21] MEDS ORDERED: MORPHINE SULFATE 4 MG/ML SYR/VIAL ONE (20:18)
[2018-08-21] MEDS ORDERED: ONDANSETRON HCL 4 MG/2 ML VIAL ONE (20:18)
[2018-08-21] MEDS ORDERED: ONDANSETRON HCL 4 MG/2 ML VIAL IV ONE (20:30)
[2018-08-21] MEDS ORDERED: MORPHINE SULFATE 4 MG/ML SYR/VIAL IV ONE (20:30)
[2018-08-21] MEDS ORDERED: ACETAMINOPHEN 500 MG TAB PO PRN (22:45)
[2018-08-21] MEDS ORDERED: HYDROcodone-ACET 5/325MG TAB PO PRN (23:15)
[2018-08-21] MEDS ORDERED: LORazepam 2MG/ML-1ML VIAL IV PRN (23:15)
[2018-08-21] MEDS ORDERED: ALPRAZolam 0.5 MG TAB PO PRN (23:30)
[2018-08-21] MEDS: ONDANSETRON HCL 4 MG/2 ML VIAL IV PRN (23:42)
[2018-08-21 23:52] VITALS: BP 152/94
[2018-08-22] MEDS ORDERED: DIAZEPAM 5 MG TAB PO PRN (01:00)
[2018-08-22] MEDS: MORPHINE SULFATE 4 MG/ML SYR/VIAL IV PRN ×5 (01:30→21:04)
[2018-08-22] MEDS: ONDANSETRON HCL 4 MG/2 ML VIAL IV PRN ×3 (03:48→21:00)
[2018-08-22 04:59] VITALS: BP 152/93
[2018-08-22 05:41] LABS: Basophils # (auto) 0 uL; Basophils % (auto) 0.7 % (0.0-2.0); Eosinophils # (auto) 0.3 uL; Eosinophils % (auto) 4.1 % (0.0-7.0); Hematocrit 38.8 % (41.0-53.0); Hemoglobin 13.4 g/dL (13.5-17.5); Lymphocytes # (auto) 1.5 uL; Lymphocytes % (auto) 23.9 % (10.0-50.0); Mean Corpuscular Hemoglobin 32.4 pg (28.0-32.0); Mean Corpuscular Hgb Conc. 34.4 g/dL (32.0-36.0); Mean Corpuscular Volume 94.1 fL (80.0-100.0); Monocytes # (auto) 0.8 uL; Neutrophils # (auto) 3.8 uL; Neutrophils % (auto) 59.3 % (37.0-80.0); Platelet Count (auto) 171 10^3/uL (140-450); Red Blood Cells 4.12 10^6/uL (4.5-5.90); Red Cell Distribution Width 14.9 % (11.8-14.3); White Blood Cell 6.4 10^3/uL (4.4-10.8)
[2018-08-22 05:51] LABS: Calcium 8.1 mg/dL (8.5-10.1)
[2018-08-22 08:00] VITALS: BP 153/104
[2018-08-22] MEDS ORDERED: fentaNYL 25MCG/HR 25 MCG/HR PAT TD SCH (11:30)
[2018-08-22] MEDS ORDERED: fentaNYL 100MCG/HR 100 MCG/HR PAT TD SCH (11:30)
[2018-08-22] MEDS ORDERED: DULoxetine HCL 30 MG CAP PO ONE (11:45)
[2018-08-22 12:00] VITALS: BP 145/93
[2018-08-22] MEDS ORDERED: hydrALAZINE HCL 20 MG/ML VL IV PRN (12:15)
[2018-08-22 16:00] VITALS: BP 168/97
[2018-08-22] MEDS ORDERED: TAMSULOSIN HYDROCHLORIDE 0.4 MG CAP PO SCH (18:00)
[2018-08-22 22:00] VITALS: BP 130/87
[2018-08-22 22:17] LABS: Urine Bacteria NONE SEEN /hpf (None Seen); Urine Blood Negative /uL (Negative); Urine Specific Gravity 1.018 (1.001-1.035); Urine WBC <1 /hpf (0 - 3)
[2018-08-22] MEDS ORDERED: TEMAZEPAM 15 MG CAP PO ONE (22:30)
[2018-08-22 22:31] LABS: Alcohol, Urine < 3.0 mg/dL (0-5); Amphetamine Screen, Urine NEGATIVE (NEGATIVE); Barbiturate Scree,Urine POSITIVE (NEGATIVE); Benzodiazephine Screen, Urine POSITIVE (NEGATIVE); Cannabinoid Screen, Urine NEGATIVE (NEGATIVE); Cocaine Screen, Urine NEGATIVE (NEGATIVE); Opiate Scree,Urine POSITIVE (NEGATIVE); Phencyclidine Screen, Urine NEGATIVE (NEGATIVE)
[2018-08-23] MEDS: ONDANSETRON HCL 4 MG/2 ML VIAL IV PRN ×4 (01:06→14:50)
[2018-08-23] MEDS: MORPHINE SULFATE 4 MG/ML SYR/VIAL IV PRN ×4 (01:07→14:50)
[2018-08-23 05:00] VITALS: BP 117/92
[2018-08-23 09:00] VITALS: BP 139/96
[2018-08-23] MEDS ORDERED: DULoxetine HCL 30 MG CAP PO SCH (10:00)
[2018-08-23 12:52] VITALS: BP 129/76
== END 2018-08-23 16:20 | disposition hospice, home (50) | DRG 74 ==
LOC: EDBD 14:52 → ER 14:58 → EAST 22:39
PROVIDERS: ADMIT Nurse Practitioner Family; ATTEND Nurse Practitioner Family
DX: G62.9 Polyneuropathy, unspecified (principal); F11.20 Opioid dependence, uncomplicated; R53.1 Weakness; J44.9 Chronic obstructive pulmonary disease, unspecified; K21.9 Gastro-esophageal reflux disease without esophagitis; I48.91 Unspecified atrial fibrillation; F41.9 Anxiety disorder, unspecified; E78.5 Hyperlipidemia, unspecified; G89.29 Other chronic pain; I10 Essential (primary) hypertension; I25.10 Atherosclerotic heart disease of native coronary artery without angina pectoris; Z85.528 Personal history of other malignant neoplasm of kidney; Z87.11 Personal history of peptic ulcer disease; Z87.442 Personal history of urinary calculi; Z95.1 Presence of aortocoronary bypass graft; Z83.79 Family history of other diseases of the digestive system; Z83.6 Family history of other diseases of the respiratory system; Z81.1 Family history of alcohol abuse and dependence; Z84.1 Family history of disorders of kidney and ureter; Z82.3 Family history of stroke; Z79.899 Other long term (current) drug therapy
CPT/HCPCS: 36415; 71045; 80048; 80053; 80307; 81001; 83605; 83735; 84484; 85025; 85610; 85730; 87040; 87081; 87086; 87088; 87186; 92610; 94761; 96361; 96374; 96375; G0378; J2405

== ENCOUNTER 2018-10-20 17:56 | Emergency (ER) | payer MEDICARE ==
[~2018-10-20] VITALS: Ht 172.7 cm; Wt 54.4 kg
[~2018-10-20 17:56] MED LIST changes: -ESOM20CA PO; -FENT100D2 TD; -FENT75DI2 TD; -LEV500T PO; -METR500T PO; -Metronidazole PO
[2018-10-20 18:48] LABS: Basophils # (auto) 0.1 uL; Basophils % (auto) 0.5 % (0.0-2.0); Eosinophils # (auto) 0.3 uL; Eosinophils % (auto) 2.7 % (0.0-7.0); Hematocrit 39.3 % (41.0-53.0); Hemoglobin 13.1 g/dL (13.5-17.5); Lymphocytes # (auto) 1.8 uL; Lymphocytes % (auto) 16.4 % (10.0-50.0); Mean Corpuscular Hemoglobin 32.3 pg (28.0-32.0); Mean Corpuscular Hgb Conc. 33.4 g/dL (32.0-36.0); Mean Corpuscular Volume 96.5 fL (80.0-100.0); Monocytes % (auto) 9.1 % (0.0-12.0); Neutrophils # (auto) 7.7 uL; Neutrophils % (auto) 71.3 % (37.0-80.0); Platelet Count (auto) 242 10^3/uL (140-450); Red Blood Cells 4.07 10^6/uL (4.5-5.90); Red Cell Distribution Width 15.6 % (11.8-14.3); White Blood Cell 10.8 10^3/uL (4.4-10.8)
[2018-10-20 19:08] LABS: Albumin 3.4 g/dL (3.4-5.0); Anion Gap 6 (5-15); Blood Urea Nitrogen 12 mg/dL (7-18); Calcium 8.6 mg/dL (8.5-10.1); Carbon Dioxide 27 mmol/L (21-32); Chloride 101 mmol/L (98-107); Glucose 103 mg/dL (74-106); Magnesium 2.5 mg/dL (1.6-2.6); Sodium 134 mmol/L (136-145)
[2018-10-20 19:14] LABS: Alanine Aminotransferase 14 U/L (16-61); Alkaline Phosphatase 59 U/L (45-117); Aspartate Aminotransferase 16 U/L (15-37); Bilirubin, Total 0.9 mg/dL (0.2-1.0); GFR African American > 60 mL/min; GFR Non-African American > 60 mL/min; Total Protein 6.4 g/dL (6.4-8.2)
[2018-10-20 19:30] VITALS: BP 142/86
[2018-10-20] MEDS ORDERED: MORPHINE SULFATE 10 MG/ML INJ 1ML SDV IM ONE (20:15)
[2018-10-20] MEDS ORDERED: ONDANSETRON HCL 4 MG/2 ML VIAL IM ONE (20:15)
[2018-10-20] MEDS ORDERED: fentaNYL 100MCG/HR 100 MCG/HR PAT TD SCH (21:00)
[2018-10-21] MEDS ORDERED: MORPHINE SULFATE 10 MG/ML INJ 1ML SDV IM ONE
== END 2018-10-21 00:27 | disposition home or self-care (01) ==
LOC: EDBD 17:56 → ER 17:59
DX: G89.4 Chronic pain syndrome (principal); G62.9 Polyneuropathy, unspecified; F11.20 Opioid dependence, uncomplicated; I25.10 Atherosclerotic heart disease of native coronary artery without angina pectoris; K21.9 Gastro-esophageal reflux disease without esophagitis; E78.00 Pure hypercholesterolemia, unspecified; I10 Essential (primary) hypertension; Z95.1 Presence of aortocoronary bypass graft; Z88.8 Allergy status to other drugs, medicaments and biological substances; Z88.1 Allergy status to other antibiotic agents; Z88.2 Allergy status to sulfonamides; Z79.891 Long term (current) use of opiate analgesic; Z79.899 Other long term (current) drug therapy
CPT/HCPCS: 36415; 80053; 83735; 84484; 85025; 93005; 96372; 99284; J2270; J2405